=== PATIENT | male | born 1960 | race Caucasian/White ===

== ENCOUNTER 2016-08-06 07:27 | Day surgery (SDC) | payer OTHER ==
--- NOTE | ~2016-08-06 | EGD ---
EGD REPORT [facility] [address] [place] [id number] NAME: WALLACE JORDAN : 56 STATUS : REG [facility] [place] PAT#: [id number] AGE: 56 ADM/REG DATE : 08/06/16 MR#: [id number] REPORT SERV DATE: 08/06/16 DICTATED BY: XIANG MUNGUIA DATE: 08/06/16 REPORT STATUS : Draft TRANSCRIBED BY: [facility] DATE: 08/06/16 [facility] Patient Name: Wallace Jordan Date of : 1960 Attending MD: XIANG MUNGUIA MD Procedure Date No Time: 08/06/2016 Procedure: Upper GI endoscopy Indications: Dysphagia Referring MD: YANIV TOWNSEND MD Medicines: Propofol per Anesthesia Complications: No immediate complications. Procedure: Pre-Anesthesia Assessment: - ASA Grade Assessment: III - A patient with severe systemic disease. After obtaining informed consent, the endoscope was passed under direct vision. Throughout the procedure, the patient's blood pressure, pulse, and oxygen saturations were monitored continuously. The GIF [id number] was introduced through the mouth, and advanced to the third part of duodenum. The upper GI endoscopy was accomplished without difficulty. The patient tolerated the procedure well. Findings: A benign-appearing, intrinsic moderate stenosis measuring less than one cm (in length) x 1.3 cm (inner diameter) was found at the gastroesophageal junction and was traversed. A guidewire was placed and the scope was withdrawn. Dilation was performed with a Savary dilator with no resistance at 45 Fr. Estimated blood loss: none. The exam was otherwise without abnormality. Impression: - Benign-appearing esophageal stricture. Dilated. - The examination was otherwise normal. Recommendation: - Return to my office in 3 months. Procedure Code(s): --- Professional --- 12073, Esophagogastroduodenoscopy, flexible, transoral; with insertion of guide wire followed by passage of dilator(s) through esophagus over guide wire Diagnosis Code(s): --- Professional --- K22.2, Esophageal obstruction R13.10, Dysphagia, unspecified EGD REPORT [facility] [address] [place] [id number] NAME: WALLACE JORDAN : 56 STATUS : REG [facility] [place] PAT#: [id number] AGE: 56 ADM/REG DATE : 08/06/16 MR#: [id number] REPORT SERV DATE: 08/06/16 DICTATED BY: XIANG MUNGUIA. DATE: 08/06/16 REPORT STATUS : Draft TRANSCRIBED BY: [employer] DATE: 08/06/16 CPT copyright 2013 [employer]. All rights reserved. The codes documented in this report are preliminary and upon ecd review may be revised to meet current compliance requirements. XIANG MUNGUIA MD 08/06/2016 9:30 AM This report has been signed electronically. Number of Addenda: 0 Note Initiated On: 08/06/2016 9:16 AM Scope Withdrawal Time 0 hours 0 minutes 0 seconds [id number] [id number]
[~2016-08-06 07:27] MED LIST: ASAB PO; ASAEC PO; FLEX PO; LIPITOR80 MG PO; MIRAPEX125 PO; MOBIC15 MG PO; MOBIC7.5 PO; MSCONT15 PO; NEUR400 PO; NEUR600 PO; NORCO1 TA2 PO; PLAVIX PO; ROLAIDS PO; SPIRIVA INH; TYLENOL #4 PO; ZOCOR40 PO
== END 2016-08-06 23:59 | disposition home or self-care (01) ==
LOC: DMU 07:27
PROVIDERS: Internal Medicine Gastroenterology
PROC: 0D747ZZ Dilation of Esophagogastric Junction, Via Natural or Artificial Opening (ICD-10-PCS; principal; 2016-08-06 09:30)
DX: K22.2 Esophageal obstruction (principal); R13.10 Dysphagia, unspecified; G25.81 Restless legs syndrome; E78.5 Hyperlipidemia, unspecified; J45.909 Unspecified asthma, uncomplicated; J44.9 Chronic obstructive pulmonary disease, unspecified; I82.403 Acute embolism and thrombosis of unspecified deep veins of lower extremity, bilateral; Z95.5 Presence of coronary angioplasty implant and graft; Z79.82 Long term (current) use of aspirin; Z79.899 Other long term (current) drug therapy